=== PATIENT | female | born 1965 | race Caucasian/White ===

== ENCOUNTER 2016-10-30 17:00 | Emergency (ER) | payer OTHER ==
[~2016-10-30] VITALS: Ht 157.5 cm; Wt 57.3 kg
[2016-10-30 17:26] VITALS: BP 110/68; PULSE 72; RESP 10; O2SAT 99
--- NOTE | 2016-10-30 19:00 | ED.REPORT ---
HPI-Neurologic Deficit Date of Service Oct 30, 2016 ED Provider: Khalif Swift MD The patient is a 51 year old otherwise healthy female who presents to the emergency department complaining of left hand weakness and tinging that began a few weeks ago. The tingling radiates up into her left arm and she has also noticed pain in her left shoulder blade. Her symptoms have worsened since onset and she has also developed some tingling in her right hand, difficulty ambulating, and some mental status changes. She reports that it feels like she is having difficulty placing her feet when walking. She feels like she has a hard time forming thoughts and word finding. Before the numbness and tingling began she noticed some pain in her back with exercise. She was seen by Dr. Crenshaw a few weeks ago for these symptoms and had an MR that showed bulging discs. Her next appointment is on the . She denies lower extremity numbness , lower extremity weakness, bladder incontinence, bowel incontinence, chest pain or abdominal pain. She denies previous spine surgeries. She is right hand dominant. She denies any recent illnesses. Nursing Notes Stated Complaint: BILATERAL WEAKNESS IN HANDS Chief Complaint: Extremity Trauma Nursing Notes Reviewed: Yes Allergies: Coded Allergies: No Known Allergies (Unverified , 10/30/16) Scheduled Dexamethasone (Dexamethasone) 4 Mg Tablet 8 MG PO DAILY General Time Seen by Provider: 18:40 Chief Complaint Weakness hand..., Numbness hand... Hx Obtained From: Patient Arrived By: Walk-in Sudden in Onset?: No Onset Occurred: More than a week ago... Symptom Duration: Since onset Progression Since Onset: Gradually worsening Location: : Back lower: Back upper Quality: Painful Severity: Current: Mild Severity: Maximum: Moderate Recent Healthcare: No recent hospitalization, Recent doctor visit, Prior workup (MR) Similar Sx Previous: No Past Medical History Past Medical History None Family History Noncontributory Smoking History Unknown if Ever Smoker Social History Lives with her landlord their partner Other Social History: Local resident Ambulatory Status Independent Review of Systems Review of Systems Note: +difficulty forming thoughts and word findings Constitutional: Denies: Chills, Fever Respiratory: Denies: Non-productive cough Cardiovascular: Denies: Chest pain GI: Denies: Abdominal pain, Diarrhea, Nausea, Vomiting Musculoskeletal: Reports: Back pain Neurologic: Reports: Focal weakness, Numbness, Problem walking, Denies: Bladder dysfunction, Bowel dysfunction Complete sys rev & neg: except as marked. Physical Exam Initial Vital Signs Vital Signs (First) Date Time Temp Pulse Resp B/P Pulse Ox O2 Delivery O2 Flow Rate FiO2 10/30/16 17:26 37.3 72 10 110/68 99 Room Air Initial VS: Reviewed ENT: Mucous membranes moist, Conjunctiva normal, No scleral icterus Abdomen / GI: Soft, Non-tender, No guarding, No rebound, No distention Lymphatic: No lymphadenopathy Extremities: Vascular intact, Neuro intact, No swelling, No tenderness Skin: Warm, Dry, No cyanosis Psychiatric: Mood/affect normal, Behavior normal, Normal thought content General/Constitutional: Awake, Alert, Cooperative Head / Eyes: Atraumatic, Normocephalic, PERRL, EOMI Respiratory / Chest: Atraumatic, Breath sounds NL, Breath sounds = bilat, No respiratory distress, No rales, No rhonchi, No wheezing Cardiovascular: Heart rate NL, Regular rhythm, Heart sounds NL, No gallop, No murmurs, No rubs, Peripheral circulation NL Neurologic: Oriented X3, Speech NL, CN II - XII intact, Cerebellar NL, Memory NL, Gait NL Neck: Atraumatic, Supple, No meningismus, Full range of motion, No swelling, Non-tender, No midline vertebral tend, No carotid bruit Back: Atraumatic, Inspection NL, Full range of motion, Non-tender, No midline vertebral tend, No paraspinal tenderness Wrist / Hand: No deformity Hypothenar wasting on the left. Intrinsic muscle strength of the left hand is reduced. Re-Eval/Medical Decision Re-Evaluation/Progress : Time of Eval: 19:16 Re-Evaluation/Progress Note: Discussed plan for discharge and outpatient followup. All questions were addressed. Consultation : Referral / Consult Name: Kirsten Ventura MD Consulted With: Orthopedic Call Returned at: 19:10 Cotton Inspector: Agrees with eval, Agrees with plan Note: She would like the patient started on dexamethasone and recommends that the patient is seen in the clinic tomorrow or the next day. Counseled Regarding: Diagnosis, Need for follow-up, When/why to return to ED Discharge & Departure Impression: Primary Impression: Cervical spinal cord compression Additional Impression: Cervical radiculopathy Disposition: Home Discharge Condition All VS Reviewed: Yes Condition: Stable Patient Instructions: Cervical Radiculopathy (ED) Additional Instructions: Thank you for entrusting us with your care today. I spoke with the on-call provider Dr. Ventura. She would like to start you on dexamethasone and recommends that you are seen in the office in the next 1-2 days. Call first thing in the morning and speak with Dr. Crenshaw's medical record administrator. Make sure they have seen your MR results and are able to get you an appointment tomorrow or the day after. I have given you my card with my contact information if you have any trouble being seen tomorrow. You can always return to the emergency department for any new or concerning symptoms. Referrals: Ramya Acuna (PCP) Marino Crenshaw MD [place] Portions of this note were transcribed by Beckie Carroll. I, Dr. Swift personally performed the history, physical exam and medical decision-making; I reviewed and confirmed the accuracy of the information in the transcribed note. Signed by: Karlie Alarcon, 10/30/2016 at 2000. copies to: Marino Crenshaw MD; Ramya Acuna Kirk H MD Oct 30, 2016 19:00 Beckie Carroll Oct 30, 2016 19:03
[2016-10-30] MEDS ORDERED: DXM4T PO (19:22)
[2016-10-30 19:26] VITALS: BP 110/68; PULSE 72; RESP 10; O2SAT 99
== END 2016-10-30 19:25 | disposition home or self-care (01) ==
LOC: SED 17:00
DX: G95.20 Unspecified cord compression (principal); M54.12 Radiculopathy, cervical region